=== PATIENT | female | born 1950 | race Caucasian/White ===

== ENCOUNTER → 2018-04-28 16:13 | Outpatient (CLI) | payer MEDICARE, SELFPAY ==
--- NOTE | 2018-04-28 16:23 | XR_ITS ---
XR finger LT min 2V CLINICAL INDICATION: Traumatic pain ITS.REASON: S/P FALL ORDERING PHYSICIAN: Henry Patel PATIENT AGE: 68 years Comparison: None FINDINGS: No fracture or dislocation IMPRESSION: Negative left thumb
--- NOTE | 2018-04-28 16:23 | XR_ITS ---
XR knee RT 3V HISTORY: Posttraumatic pain ITS.REASON: S/P FALL ORDERING PHYSICIAN: Henry Patel PATIENT AGE: 68 years COMPARISON: None FINDINGS: No fracture or dislocation. No lytic or blastic change. Normal mineralization. No significant arthritic changes evident. No other significant findings IMPRESSION: Negative Knee
== END ==
PROVIDERS: PCP Internal Medicine; Visit Provider Internal Medicine
DX: M79.645 Pain in left finger(s) (principal); M25.561 Pain in right knee; Z91.81 History of falling
CPT/HCPCS: 73140; 73562

== ENCOUNTER → 2018-05-24 14:50 | Outpatient (CLI) | payer MEDICARE, SELFPAY ==
[2018-05-24 15:18] LABS: Basophils # 0.1 K/mm3 (0-0.2); Eosinophils # 0.1 K/mm3 (0.0-0.4); Eosinophils % 2.3 % (0.1-12.0); Hematocrit 47.6 % (37.0-47.0); Hemoglobin 15.6 g/dL (12.2-16.2); Lymphocytes # 1.5 K/mm3 (0.7-4.5); Lymphocytes % 25.1 K/mm3 (10-50); Mean Corpuscular HGB Conc 32.9 g/dL (31.8-35.4); Mean Corpuscular Hemoglobin 29.7 pg (27.0-31.2); Mean Corpuscular Volume 90.3 fl (81-99); Mean Platelet Volume 7.4 fl (7.4-10.4); Monocytes # 0.4 K/mm3 (0.1-1.0); Monocytes % 6.8 % (1.7-9.3); Neutrophils # 3.8 K/mm3 (1.8-7.8); Neutrophils % 64.8 % (37.0-80.0); Platelet Count 203 K/mm3 (142-424); Red Blood Count 5.27 M/mm3 (4.20-5.40); Red Cell Distribution Width 12.8 % (11.5-17.5); White Blood Count 5.8 K/mm3 (4.8-10.8)
[2018-05-24 16:35] LABS: Alanine Aminotransferase 28 U/L (12-78); Albumin Level 3.8 gm/dL (3.4-5.0); Albumin/Globulin Ratio 1.1 (1.1-1.8); Alkaline Phosphatase 131 U/L (46-116); Anion Gap 11.7 mEq/L (5-15); Aspartate Amino Transferase 19 U/L (15-37); Bilirubin,Total 0.6 mg/dL (0.2-1.0); Blood Urea Nitrogen 20 mg/dL (7-18); Calcium 9.6 mg/dL (8.5-10.1); Carbon Dioxide 28 mmol/L (21.0-32.0); Chloride 107 mmol/L (98-107); Chol/HDL Ratio 4.3 (1-3.5); Cholesterol 218 mg/dL (140-200); Creatinine,Serum 0.86 mg/dL (0.55-1.02); Estimated Glomerular Filt Rate 65 ml/min (>60); GFR (African American) 79 ML/MIN (>60); Globulin 3.5 gm/dl (1.3-3.2); Glucose 85 mg/dL (74-106); HDL Cholesterol 51 mg/dL (29-89); LDL Cholesterol 142 mg/dL (0-130); Potassium 4.7 mmoL/L (3.5-5.1); Sodium 142 mmol/L (136-145); Thyroid Stimulating Hormone 2.85 uIU/ml (0.358-3.740); Total Protein,Serum 7.3 gm/dL (6.4-8.2); Triglycerides 123 mg/dL (30-200); VLDL Cholesterol 25 mg/dL (0-40)
== END ==
PROVIDERS: PCP Internal Medicine; Visit Provider Internal Medicine
DX: E78.3 Hyperchylomicronemia (principal); R07.9 Chest pain, unspecified; I10 Essential (primary) hypertension; K74.3 Primary biliary cirrhosis
CPT/HCPCS: 36415; 80053; 80061; 84443; 85025; 93005

== ENCOUNTER → 2019-01-05 15:33 | Outpatient (CLI) | payer MEDICARE, SELFPAY ==
--- NOTE | 2019-01-05 15:50 | MM_ITS ---
MM Dig screening mamm BI w/CAD CAD Screening COMPARISON: Digital mammograms with CAD 01/21/2017 and 12/10/2015 INDICATION: There is no personal or family history of breast cancer TECHNIQUE: Standard CC and MLO images were obtained. R2 CAD reviewed. FINDINGS: The breasts are composed primarily of fat with minimal fibroglandular densities in the subareolar regions bilaterally. Again noted is asymmetrically increased glandular densities in subareolar region of the left breast which is stable and unchanged from previous exams additional spot compression views of the left breast subareolar region were obtained and the glandular densities are stable and unchanged with no suspicious mass or architectural distortion identified. There are couple benign-appearing calcifications in each breast. There is no suspicious lesion and there are no suspicious microcalcifications. IMPRESSION: Stable exam no suspicious lesion seen BI-RADS Category: 2 Benign Finding(s) RECOMMENDED FOLLOW-UP: 1YR - 1 YEAR FOLLOW-UP (A letter has been sent to the patient regarding results of the study.)
== END ==
PROVIDERS: PCP Internal Medicine; Visit Provider Internal Medicine
DX: Z12.31 Encounter for screening mammogram for malignant neoplasm of breast (principal)
CPT/HCPCS: 77067

== ENCOUNTER → 2019-01-19 12:30 | Outpatient (CLI) | payer MEDICARE, SELFPAY ==
--- NOTE | 2019-01-19 13:10 | CI_ITS ---
Cerebrovascular Exam Indications: Carotidynia IMPRESSIONS 1. The bilateral vertebral arteries are patent with normal antegrade flow. 2. Less than 20% stenosis involving the right internal carotid artery and the left internal carotid artery. Carotid duplex study. Complete study and Doppler flow study including spectral analysis, color and mandujano scale imaging. Height: Height: 157.5cm. Height: 62in. Weight: Weight: 83.9kg. Weight: 184.6lb. Body mass index: BMI: 33.8kg/m^2. Body surface area: BSA: 1.95m^2. Location: Vascular laboratory. Patient status: Outpatient. Tables: Arterial flow: + +--------+--------+ Location V sys V ed + +--------+--------+ Right CCA - proximal 62.9cm/s 18.1cm/s + +--------+--------+ Right CCA - distal 72.3cm/s 19.6cm/s + +--------+--------+ Right ECA 61.3cm/s -------- + +--------+--------+ Right ICA - proximal 54.3cm/s 15.8cm/s + +--------+--------+ Right ICA - mid 73.9cm/s 25.9cm/s + +--------+--------+ Right ICA - distal 75cm/s 25.5cm/s + +--------+--------+ Right vertebral 38cm/s -------- + +--------+--------+ Left CCA - proximal 70.6cm/s 19.3cm/s + +--------+--------+ Left CCA - distal 70.6cm/s 16.5cm/s + +--------+--------+ Left ECA 65.6cm/s -------- + +--------+--------+ Left ICA - proximal 53.5cm/s 18.7cm/s + +--------+--------+ Left ICA - mid 84.8cm/s 26.6cm/s + +--------+--------+ Left ICA - distal 119cm/s 40cm/s + +--------+--------+ Left vertebral 44.1cm/s -------- + +--------+--------+ Velocity ratios: + + + + + + Right, V sys Right, V ed Left, V sys Left, V ed + + + + + + Max ICA/dist CCA 1.04 1.32 1.69 2.42 + + + + + + (Report amended ) Electronically signed by: Christiano Martinez [id number]
== END ==
PROVIDERS: PCP Internal Medicine; Visit Provider Internal Medicine
DX: R55 Syncope and collapse; I10 Essential (primary) hypertension; Z82.3 Family history of stroke
CPT/HCPCS: 93880

== ENCOUNTER → 2019-06-29 11:58 | Outpatient (CLI) | payer MEDICARE, SELFPAY ==
[2019-06-29 13:02] LABS: Basophils # 0.1 K/mm3 (0-0.2); Eosinophils # 0.1 K/mm3 (0.0-0.4); Eosinophils % 2.1 % (0.1-12.0); Hematocrit 48.4 % (37.0-47.0); Hemoglobin 15.1 g/dL (12.2-16.2); Lymphocytes # 1.6 K/mm3 (0.7-4.5); Lymphocytes % 26.1 % (10-50); Mean Corpuscular HGB Conc 31.2 g/dL (31.8-35.4); Mean Corpuscular Hemoglobin 29.2 pg (27.0-31.2); Mean Corpuscular Volume 93.5 fl (81-99); Mean Platelet Volume 8.4 fl (7.4-10.4); Monocytes # 0.5 K/mm3 (0.1-1.0); Monocytes % 7.7 % (1.7-9.3); Neutrophils # 3.8 K/mm3 (1.8-7.8); Neutrophils % 63.1 % (37.0-80.0); Platelet Count 238 K/mm3 (142-424); Red Blood Count 5.17 M/mm3 (4.20-5.40); Red Cell Distribution Width 13.7 % (11.5-17.5)
[2019-06-29 13:44] LABS: Alanine Aminotransferase 32 U/L (12-78); Albumin/Globulin Ratio 1.1 (1.1-1.8); Alkaline Phosphatase 129 U/L (46-116); Anion Gap 13.5 mEq/L (5-15); Aspartate Amino Transferase 27 U/L (15-37); Bilirubin,Total 0.7 mg/dL (0.2-1.0); Blood Urea Nitrogen 18 mg/dL (7-18); Calcium 9.8 mg/dL (8.5-10.1); Carbon Dioxide 28 mmol/L (21.0-32.0); Chloride 102 mmol/L (98-107); Chol/HDL Ratio 2.6 (1-3.5); Cholesterol 152 mg/dL (140-200); Creatinine,Serum 0.89 mg/dL (0.55-1.02); Estimated Glomerular Filt Rate 63 ml/min (>60); GFR (African American) 76 ML/MIN (>60); Globulin 3.7 gm/dl (1.3-3.2); Glucose 93 mg/dL (74-106); HDL Cholesterol 58 mg/dL (29-89); LDL Cholesterol 80 mg/dL (0-130); Potassium 4.5 mmoL/L (3.5-5.1); Sodium 139 mmol/L (136-145); Total Protein,Serum 7.7 gm/dL (6.4-8.2); Triglycerides 70 mg/dL (30-200); VLDL Cholesterol 14 mg/dL (0-40)
== END ==
PROVIDERS: Visit Provider Internal Medicine
DX: I10 Essential (primary) hypertension (principal); E78.5 Hyperlipidemia, unspecified
CPT/HCPCS: 36415; 80053; 80061; 85025

== ENCOUNTER → 2020-05-11 15:26 | Outpatient (CLI) | payer MEDICARE, SELFPAY ==
--- NOTE | 2020-05-11 15:30 | MM_ITS ---
PROCEDURE: MM DIG MAMM BI DX W/CAD Digital Breast Tomosynthesis Included CLINICAL INDICATION: There is no personal or family history of breast cancer. There has been a previous cyst aspiration left breast. COMPARISON: MG DMDBAV DIG MAMM-DX LICHA W ADD VIEWS from 12/10/2015 MG DMDBAV DIG MAMM-DX LICHA W/AVWS W/CAD from 01/21/2017 MG [facility] MM Dig screening mamm BI w/CAD from 01/05/2019 TECHNIQUE: Standard CC and MLO images and 3D Tomosynthesis was obtained. R2 CAD reviewed. Additional spot compression views of the left breast were obtained MLO and CC projection. FINDINGS: The breasts are composed primarily of fat with glandular elements in the subareolar regions bilaterally. Again noted is slightly asymmetric increased glandular elements deep to the nipple left breast. The additional spot compression views were obtained along with jono images and I feel that this area is stable and unchanged from previous exams. There are couple of benign-appearing calcifications in each breast. There is no suspicious lesion in either breast and no suspicious microcalcifications. IMPRESSION: Fibrofatty parenchyma with no suspicious lesions seen BI-RAD Category: 2 Benign Finding(s) FOLLOW-UP: 1YR 1 Year Follow-up (A letter has been sent to the patient regarding results of the study.) Dictated by: Dr. Nikhil Kirkpatrick MD 05/15/2020 10:24 Dr. Nikhil Kirkpatrick MD in [place] 05/15/2020 10:24
== END ==
PROVIDERS: PCP Internal Medicine; Visit Provider Internal Medicine
DX: N63.20 Unspecified lump in the left breast, unspecified quadrant; R92.8 Other abnormal and inconclusive findings on diagnostic imaging of breast
CPT/HCPCS: 77062; 77066; G0279

== ENCOUNTER → 2021-03-18 15:30 | Outpatient (CLI) | payer MEDICARE, SELFPAY ==
--- NOTE | 2021-03-18 15:39 | CT_ITS ---
PROCEDURE: CT HEAD/BRAIN WO CON CLINICAL INDICATION: FEQUENT FALLS, HEADACHES,DIZZINESS COMPARISON: No exams were available for comparison TECHNIQUE: Axial images obtained. All CT scans at the facility use one or more dose reduction, viz: automated exposure control, ma/kV adjustment per patient size (including targeted exams where dose is matched to indication, i.e. head), or iterative reconstruction technique. FINDINGS: No midline shift, mass effect, intracranial hemorrhage, hydrocephalus, or extra-axial fluid collection is evident. There is generalized atrophy with hypoattenuation of the periventricular white matter consistent with microangiopathic changes. The calvarium has an unremarkable appearance. No mastoid effusion. No sinus air-fluid level. IMPRESSION: No acute intracranial finding Dictated by: Christiano Martinez MD 03/18/2021 16:17 Christiano Martinez MD in [facility] 03/18/2021 16:17
== END ==
PROVIDERS: PCP Internal Medicine; Visit Provider Internal Medicine
DX: R51.9 Headache, unspecified (principal); R42 Dizziness and giddiness; R29.6 Repeated falls
CPT/HCPCS: 70450

== ENCOUNTER → 2021-04-08 20:20 | Outpatient (CLI) | payer MEDICARE, SELFPAY | PROVIDERS: Visit Provider Internal Medicine | DX: N39.0 Urinary tract infection, site not specified (principal) | CPT/HCPCS: 87086 ==

== ENCOUNTER → 2022-02-19 14:35 | Outpatient (CLI) | payer MEDICARE, SELFPAY ==
--- NOTE | 2022-02-19 | US_ITS ---
PROCEDURE INFORMATION: Exam: US Left Breast, Complete Exam date and time: 02/19/2022 4:07 PM Age: 72 years old Clinical indication: Left breast pain, patient had mammogram earlier in the day, please refer to that report. TECHNIQUE: Imaging protocol: Complete ultrasound of all four quadrants of the Left breast and the retroareolar regions, including ultrasound of the axilla when performed. COMPARISON: MG MM DIG MAMM BI DX W/CAD 02/19/2022 2:36 PM FINDINGS: Breast: Left sonography shows a benign-appearing retroareolar cyst measuring 0.4 x 0.3 x 0.4 cm. No solid mass demonstrated. Sonographically unremarkable left axillary lymph node. IMPRESSION: Minimal cystic change. Further evaluation of a painful abnormality should be based on clinical grounds regardless of radiographic findings or lack thereof. No sonographic evidence of malignancy. Annual mammographic screening is recommended unless otherwise clinically indicated. ASSESSMENT: BI-RADS Category 2: Benign
--- NOTE | 2022-02-19 14:39 | MM_ITS ---
PROCEDURE INFORMATION: Exam: MG Bilateral Diagnostic Breast Tomosynthesis Exam date and time: 02/19/2022 2:36 PM Age: 72 years old Clinical indication: Concern for left breast tenderness, unable to pinpoint concern according to technologist. History of breast cysts. No family history of breast cancer. TECHNIQUE: Imaging protocol: Bilateral Diagnostic tomosynthesis and 2D mammography including computer-aided detection (CAD) when performed. Unilateral or bilateral exam. COMPARISON: 1. MG MM DIG MAMM BI DX W/CAD 05/11/2020 3:40 PM 2. MG [facility] MM Dig screening mamm BI w/CAD 01/05/2019 4:14 PM 3. MG DMDBAV DIG MAMM-DX LICHA W/AVWS W/CAD 01/21/2017 11:08 AM 4. MG DMDBAV DIG MAMM-DX LICHA W ADD VIEWS 12/10/2015 11:05 AM FINDINGS: MAMMOGRAPHY: Breast composition: There are scattered areas of fibroglandular density. Mass: None. Architectural distortion: None. Calcifications: No suspicious calcifications. Asymmetric density: Stable or less prominent focal asymmetry in the left central breast going back to 12/10/2015. No developing asymmetry. Skin thickening: None. Axillary adenopathy: None. IMPRESSION: Patient to be recalled for left breast ultrasound for further evaluation of left breast pain. No mammographic evidence of malignancy. ASSESSMENT: BI-RADS Category 0: Incomplete- Need Additional Imaging Evaluation and/or Prior Mammograms for Comparison
== END ==
PROVIDERS: PCP Internal Medicine; Visit Provider Internal Medicine
DX: N64.4 Mastodynia (principal)
CPT/HCPCS: 76641; 77062; 77066; G0279

== ENCOUNTER → 2022-03-06 16:07 | Outpatient (CLI) | payer MEDICARE, SELFPAY ==
--- NOTE | 2022-03-06 16:09 | MR_ITS ---
PROCEDURE INFORMATION: Exam: MR Lumbar Spine Without Contrast Exam date and time: 03/06/2022 4:23 PM Age: 72 years old Clinical indication: Pain; Lumbago with sciatica; Left; Additional info: Lumbago w/ lt sided sciatica. Sitting for long period of time makes it worse. No injury/trauma TECHNIQUE: Imaging protocol: Magnetic resonance imaging of the lumbar spine without contrast. COMPARISON: No relevant prior studies available. FINDINGS: Bones/joints: Periarticular endplate degenerative changes at L1-2. Spinal cord: The conus extends inferiorly to the level of L1-2. L1-L2: 3-3.5 mm broad-based predominant left lateral disc bulge and osteophytic ridge . Moderate-moderately severe left neural foraminal stenosis in part secondary to hypertrophic facet changes. Mild right neural foraminal stenosis. L2-L3: No significant disc disease. No significant spinal canal stenosis. No neural foraminal stenosis. L3-L4: 3-3.5 mm left greater than right lateral disc bulge. Mild-moderate left lateral recess and neural foraminal stenosis. Mild right neural foraminal stenosis. Spinal canal intact. L4-L5: Less than 2 mm degenerative anterolisthesis at L4-5 secondary to advanced facet hypertrophy. Mild left greater than right neural foraminal stenosis secondary to accompanying 2 mm disc bulge. L5-S1: 2 mm anterolisthesis of L5 with respect S1. 3 mm broad-based and lateral disc bulge in association with the anterolisthesis at L5-S1. There is moderate right, mild left neural foraminal stenosis. Soft tissues: Unremarkable. Kidneys and ureters: Incomplete visualization of approximate 8 mm right renal cyst.. Other findings: Diffuse changes of disc degeneration. IMPRESSION: 1. At L1-2: 3-3.5 mm broad-based predominant left lateral disc bulge and osteophytic ridge. Moderate-moderately severe left, mild right neural foraminal stenosis. 2. At L3-4: 3-3.5 mm left greater than right lateral disc bulge. Mild-moderate left lateral recess and neural foraminal stenosis. Mild right neural foraminal stenosis. 3. At L5-S1: 2 mm degenerative anterolisthesis of L5 with respect S1. Accompanying 3 mm broad based on lateral disc bulge. Moderate right, mild left neural foraminal stenosis. 4. At L4-5: Less than 2 mm degenerative anterolisthesis. Mild left greater than right neural foraminal stenosis. Accompanying 2 mm disc bulge.
== END ==
PROVIDERS: PCP Internal Medicine; Visit Provider Internal Medicine
DX: M54.42 Lumbago with sciatica, left side (principal)
CPT/HCPCS: 72148; 76376

== ENCOUNTER → 2022-04-28 16:26 | Outpatient (CLI) | payer MEDICARE, SELFPAY ==
--- NOTE | 2022-04-28 16:39 | ECG_ITS ---
APPROVED REPORT Exam: Resting ECG HR:64 bpm ECG Measurements Heart Rate 64 AXES [place] 168 P 1 QRSd 104 QRS 84 QT 377 T 20 QTc 386 Conclusion SINUS RHYTHM LOW QRS VOLTAGE IN PRECORDIAL LEADS INCOMPLETE RBBB POOR R WAVE PROGRESSION UNCONFIRMED REPORT Electronically signed by : Henry Patel MD 04/30/2022 13:57:23
== END ==
PROVIDERS: PCP Internal Medicine; Visit Provider Internal Medicine
DX: R07.9 Chest pain, unspecified (principal); I10 Essential (primary) hypertension
CPT/HCPCS: 93005

== ENCOUNTER → 2022-07-21 11:30 | Outpatient (CLI) | payer MEDICARE, SELFPAY ==
--- NOTE | 2022-07-21 11:35 | CA_ITS ---
FINAL REPORT TECHNIQUE: Ultrasound images of the deep venous system were obtained from the left groin to the calf veins. CLINICAL HISTORY: PAIN LT KNEE,EDEMA,BRUISING LT KNEE,NKI FINDINGS: The deep venous system is normally compressible. Normal flow is identified. There is a 5.6 cm popliteal cyst noted. IMPRESSION: No evidence of left lower extremity DVT. Reviewed, Interpreted and Dictated by Marin Jacome MD Transcribed by Vandana Lopez Authenticated and [facility]
--- NOTE | 2022-07-21 11:56 | XR_ITS ---
FINAL REPORT CLINICAL HISTORY: FALL ON L KNEE 07/19/22 FINDINGS: 3 views of the left knee were obtained. There is no acute fracture or dislocation. The joint spaces are intact. There is no soft tissue abnormality. IMPRESSION: No acute process. Reviewed, Interpreted and Dictated by Marin Jacome MD Transcribed by Rey Webb Authenticated and . [facility]
== END ==
PROVIDERS: PCP Internal Medicine; Visit Provider Internal Medicine
DX: M25.562 Pain in left knee (principal); M79.662 Pain in left lower leg; R60.1 Generalized edema; W19.XXXD Unspecified fall, subsequent encounter
CPT/HCPCS: 73562; 93971

== ENCOUNTER → 2022-10-03 16:33 | Outpatient (CLI) | payer MEDICARE, SELFPAY ==
--- NOTE | 2022-10-03 17:04 | ECG_ITS ---
APPROVED REPORT Exam: Resting ECG HR:70 bpm ECG Measurements Heart Rate 70 AXES MO 165 P 41 QRSd 98 QRS -33 QT 368 T 40 QTc 389 Conclusion SINUS RHYTHM POSSIBLE LEFT ATRIAL ENLARGEMENT [-0.1mV P-WAVE IN V1/V2] LEFT AXIS DEVIATION [QRS AXIS < -30] INCOMPLETE RIGHT BUNDLE BRANCH BLOCK NO SIGNIFICANT CHANGES COMPARED TO EKG IN 2006 Electronically signed by : Henry Patel MD 10/06/2022 13:46:18
[2022-10-03 18:45] LABS: Basophils # 0.1 K/mm3 (0-0.2); Basophils % 0.8 % (0.1-2.0); Eosinophils # 0.1 K/mm3 (0.0-0.4); Eosinophils % 1.2 % (0.1-12.0); Hematocrit 46.1 % (37.0-47.0); Hemoglobin 15.7 g/dL (12.2-16.2); Lymphocytes # 1.4 K/mm3 (0.7-4.5); Lymphocytes % 19.4 % (10-50); Mean Corpuscular Hemoglobin 30.8 pg (27.0-31.2); Mean Corpuscular Volume 90.6 fl (81-99); Monocytes # 0.5 K/mm3 (0.1-1.0); Monocytes % 6.8 % (1.7-9.3); Neutrophils # 5.3 K/mm3 (1.8-7.8); Neutrophils % 71.9 % (37.0-80.0); Platelet Count 236 K/mm3 (142-424); Red Blood Count 5.09 M/mm3 (4.20-5.40); Red Cell Distribution Width 13.6 % (11.5-17.5); White Blood Count 7.4 K/mm3 (4.8-10.8)
[2022-10-03 19:06] LABS: Alanine Aminotransferase 28 U/L (12-78); Albumin Level 4.4 g/dl (3.5-5.0); Albumin/Globulin Ratio 1.5 (1.1-1.8); Alkaline Phosphatase 139 U/L (38-126); Anion Gap 13.1 mEq/L (5-15); Aspartate Amino Transferase 35 U/L (14-36); Bilirubin,Total 0.5 mg/dl (0.2-1.3); Blood Urea Nitrogen 21 mg/dl (7-17); Calcium 9.3 mg/dl (8.4-10.2); Carbon Dioxide 28 mmol/L (22.0-30.0); Chloride 103 mmol/L (98-107); Estimated Glomerular Filt Rate 61 ml/min (>60); GFR (African American) 74 ML/MIN (>60); Glucose 96 mg/dl (74-100); Potassium 4.1 mmoL/L (3.5-5.1); Sodium 140 mmol/L (136-145); Total Protein,Serum 7.4 g/dl (6.3-8.2)
== END ==
PROVIDERS: PCP Internal Medicine; Visit Provider Internal Medicine
DX: Z01.818 Encounter for other preprocedural examination (principal)
CPT/HCPCS: 80053; 85025; 93005

== ENCOUNTER → 2022-11-24 14:45 | Outpatient (CLI) | payer MEDICARE, SELFPAY ==
[2022-11-24 17:28] LABS: Basophils # 0.1 K/mm3 (0-0.2); Basophils % 1.1 % (0.1-2.0); Eosinophils # 0.2 K/mm3 (0.0-0.4); Eosinophils % 2.6 % (0.1-12.0); Hematocrit 47.2 % (37.0-47.0); Hemoglobin 14.9 g/dL (12.2-16.2); Lymphocytes # 1.4 K/mm3 (0.7-4.5); Lymphocytes % 20.8 % (10-50); Mean Corpuscular HGB Conc 31.6 g/dL (31.8-35.4); Mean Corpuscular Hemoglobin 29.2 pg (27.0-31.2); Mean Corpuscular Volume 92.6 fl (81-99); Monocytes # 0.4 K/mm3 (0.1-1.0); Monocytes % 6.5 % (1.7-9.3); Neutrophils # 4.7 K/mm3 (1.8-7.8); Platelet Count 271 K/mm3 (142-424); Red Cell Distribution Width 13.5 % (11.5-17.5); White Blood Count 6.8 K/mm3 (4.8-10.8)
[2022-11-24 17:34] LABS: Alanine Aminotransferase 32 U/L (12-78); Albumin Level 4.6 g/dl (3.5-5.0); Albumin/Globulin Ratio 1.5 (1.1-1.8); Alkaline Phosphatase 174 U/L (38-126); Anion Gap 13.7 mEq/L (5-15); Aspartate Amino Transferase 48 U/L (14-36); Bilirubin,Total 0.7 mg/dl (0.2-1.3); Blood Urea Nitrogen 23 mg/dl (7-17); Calcium 10.2 mg/dl (8.4-10.2); Carbon Dioxide 29 mmol/L (22.0-30.0); Chloride 99 mmol/L (98-107); Chol/HDL Ratio 3.7 (1-3.5); Cholesterol 190 mg/dl (140-200); Estimated Glomerular Filt Rate 61 ml/min (>60); GFR (African American) 74 ML/MIN (>60); Glucose 82 mg/dl (74-100); HDL Cholesterol 52 mg/dl (40-60); Potassium 4.7 mmoL/L (3.5-5.1); Sodium 137 mmol/L (136-145); Total Protein,Serum 7.6 g/dl (6.3-8.2); Triglycerides 110 mg/dl (30-150); VLDL Cholesterol 22 mg/dL (0-40)
[2022-11-24 17:45] LABS: Direct LDL Cholesterol 108.66 mg/dL (100-129)
== END ==
PROVIDERS: PCP Internal Medicine; Visit Provider Internal Medicine
DX: I10 Essential (primary) hypertension (principal); E78.5 Hyperlipidemia, unspecified; K74.3 Primary biliary cirrhosis; K21.9 Gastro-esophageal reflux disease without esophagitis; M81.0 Age-related osteoporosis without current pathological fracture
CPT/HCPCS: 80053; 80061; 85025

== ENCOUNTER → 2023-04-28 11:56 | Outpatient (CLI) | payer MEDICARE, SELFPAY ==
[2023-04-28 14:01] LABS: Chloride 102 mmol/L (98-107); Potassium 4.6 mmoL/L (3.5-5.1); Sodium 142 mmol/L (136-145)
[2023-04-28 14:04] LABS: Alanine Aminotransferase 24 U/L (12-78); Albumin Level 4.1 g/dl (3.5-5.0); Albumin/Globulin Ratio 1.3 (1.1-1.8); Alkaline Phosphatase 170 U/L (38-126); Anion Gap 14.6 mEq/L (5-15); Aspartate Amino Transferase 33 U/L (14-36); Bilirubin,Total 0.5 mg/dl (0.2-1.3); Blood Urea Nitrogen 22 mg/dl (7-17); Carbon Dioxide 30 mmol/L (22.0-30.0); Cholesterol 145 mg/dl (140-200); Estimated Glomerular Filt Rate 61 ml/min (>60); GFR (African American) 74 ML/MIN (>60); Globulin 3.2 g/dL (1.3-3.2); Glucose 87 mg/dl (74-100); Total Protein,Serum 7.3 g/dl (6.3-8.2); Triglycerides 114 mg/dl (30-150); VLDL Cholesterol 23 mg/dL (0-40)
[2023-04-28 15:26] LABS: Basophils % 0.5 % (0.1-2.0); Eosinophils # 0.1 K/mm3 (0.0-0.4); Eosinophils % 1.8 % (0.1-12.0); Hematocrit 47.6 % (37.0-47.0); Hemoglobin 15.2 g/dL (12.2-16.2); Lymphocytes # 1.4 K/mm3 (0.7-4.5); Lymphocytes % 20.1 % (10-50); Mean Corpuscular HGB Conc 31.9 g/dL (31.8-35.4); Mean Corpuscular Hemoglobin 28.7 pg (27.0-31.2); Mean Corpuscular Volume 90.2 fl (81-99); Mean Platelet Volume 9.6 fl (7.4-10.4); Monocytes # 0.4 K/mm3 (0.1-1.0); Neutrophils % 71.5 % (37.0-80.0); Platelet Count 217 K/mm3 (142-424); Red Blood Count 5.27 M/mm3 (4.20-5.40); Red Cell Distribution Width 13.6 % (11.5-17.5); White Blood Count 7.1 K/mm3 (4.8-10.8)
[2023-04-28 15:31] LABS: Direct LDL Cholesterol 73.91 mg/dL (100-129)
[2023-04-28 16:29] LABS: Chol/HDL Ratio 3.5 (1-3.5); HDL Cholesterol 41 mg/dl (40-60)
== END ==
PROVIDERS: PCP Internal Medicine; Visit Provider Internal Medicine
DX: K74.3 Primary biliary cirrhosis (principal); I10 Essential (primary) hypertension; E78.5 Hyperlipidemia, unspecified
CPT/HCPCS: 36415; 80053; 80061; 85025

== ENCOUNTER → 2023-07-13 14:35 | Outpatient (CLI) | payer MEDICARE, SELFPAY ==
--- NOTE | 2023-07-13 14:43 | MM_ITS ---
PROCEDURE INFORMATION: Exam: MG Bilateral Screening 3D Mammography Exam date and time: 07/13/2023 2:33 PM Age: 73 years old Clinical indication: Screening examination TECHNIQUE: Imaging protocol: Bilateral Screening tomosynthesis and 2D mammography including computer-aided detection (CAD) when performed. COMPARISON: 1. MG MM DIG MAMM BI DX W/CAD 02/19/2022 2:36 PM 2. MG MM DIG MAMM BI DX W/CAD 05/11/2020 3:40 PM FINDINGS: MAMMOGRAPHY: Breast composition: The breasts are heterogeneously dense, which may obscure small masses. Mass: None. Architectural distortion: None. Calcifications: No suspicious calcifications. Asymmetric density: None. Skin thickening: None. Axillary adenopathy: None. IMPRESSION: No mammographic evidence of malignancy. Annual screening is recommended unless otherwise clinically indicated. ASSESSMENT: BI-RADS Category 1: Negative
== END ==
PROVIDERS: PCP Internal Medicine; Visit Provider Internal Medicine
DX: R92.8 Other abnormal and inconclusive findings on diagnostic imaging of breast (principal); Z12.31 Encounter for screening mammogram for malignant neoplasm of breast
CPT/HCPCS: 77063; 77067

== ENCOUNTER 2024-04-21 12:44 | Outpatient (CLI) | payer MEDICARE, SELFPAY ==
--- NOTE | 2024-04-21 12:44 | CA_ITS ---
FINAL REPORT TECHNIQUE: Color Doppler, duplex Doppler and mandujano scale sonography of the bilateral neck arterial vasculature was performed. Velocities were measured in the carotid arteries. Stenosis evaluation based on the validated velocity criteria. CLINICAL HISTORY: Patient stopped statin therapy, HTN, family history of HD, JOSHUA FINDINGS: The peak systolic velocity of the right common carotid artery is 85 cm/s. The peak systolic velocity of the right internal carotid artery is 75 cm/s and end diastolic velocity 28 cm/s. The ICA/CCA ratio is 1.2. A small amount of plaque is present. The right external carotid artery is patent. The right vertebral artery is patent with antegrade flow. The peak systolic velocity of the left common carotid artery is 80 cm/s. The peak systolic velocity of the left internal carotid artery is 112 cm/s and end diastolic velocity 32 cm/s. The ICA/CCA ratio is 1.7. A small amount of plaque is present. The left external carotid artery is patent.The left vertebral artery is patent with antegrade flow. IMPRESSION: Less than 50% bilateral carotid stenoses. Bilateral patent vertebral arteries with antegrade flow. If indicated, CTA or MRA could further evaluate. Reviewed, Interpreted and Dictated by Bay Menjivar III, MD Transcribed by Desiree Jay Authenticated and [facility]
[2024-04-21 13:40] LABS: Chloride 106 mmol/L (98-107); Sodium 139 mmol/L (136-145)
[2024-04-21 13:41] LABS: Potassium 4.3 mmoL/L (3.5-5.1)
[2024-04-21 13:43] LABS: Alanine Aminotransferase 23 U/L (12-78); Albumin/Globulin Ratio 1.4 (1.1-1.8); Alkaline Phosphatase 123 U/L (38-126); Anion Gap 6.3 mEq/L (5-15); Aspartate Amino Transferase 31 U/L (14-36); Bilirubin,Total 0.7 mg/dl (0.2-1.3); Blood Urea Nitrogen 20 mg/dl (7-17); Carbon Dioxide 31 mmol/L (22.0-30.0); Estimated Glomerular Filt Rate 61 ml/min (>60); GFR (African American) 74 ML/MIN (>60); Globulin 2.8 g/dL (1.3-3.2); Total Protein,Serum 6.8 g/dl (6.3-8.2)
[2024-04-21 13:44] LABS: Calcium 9.6 mg/dl (8.4-10.2); Chol/HDL Ratio 4.8 (1-3.5); Cholesterol 211 mg/dl (140-200); Glucose 90 mg/dl (74-100); HDL Cholesterol 44 mg/dl (40-60); Triglycerides 144 mg/dl (30-150); VLDL Cholesterol 29 mg/dL (0-40)
[2024-04-21 13:55] LABS: Direct LDL Cholesterol 125.28 mg/dL (100-129)
== END 2024-04-21 23:59 | disposition home or self-care (01) ==
LOC: RT 12:44
PROVIDERS: PCP Internal Medicine; Visit Provider Internal Medicine
DX: I65.23 Occlusion and stenosis of bilateral carotid arteries (principal); K74.3 Primary biliary cirrhosis; I10 Essential (primary) hypertension; E78.5 Hyperlipidemia, unspecified
CPT/HCPCS: 36415; 80053; 80061; 93880

== ENCOUNTER 2024-08-18 15:35 | Outpatient (CLI) | payer MEDICARE, SELFPAY ==
[2024-08-18 17:22] LABS: Basophils # 0.1 K/mm3 (0-0.2); Basophils % 0.9 % (0.1-2.0); Eosinophils # 0.1 K/mm3 (0.0-0.4); Eosinophils % 1.7 % (0.1-12.0); Hematocrit 47.3 % (37.0-47.0); Hemoglobin 15.7 g/dL (12.2-16.2); Lymphocytes # 1.4 K/mm3 (0.7-4.5); Lymphocytes % 21.9 % (10-50); Mean Corpuscular HGB Conc 33.3 g/dL (31.8-35.4); Mean Corpuscular Hemoglobin 30.3 pg (27.0-31.2); Mean Platelet Volume 8.7 fl (7.4-10.4); Monocytes # 0.4 K/mm3 (0.1-1.0); Monocytes % 6.9 % (1.7-9.3); Neutrophils # 4.2 K/mm3 (1.8-7.8); Neutrophils % 68.6 % (37.0-80.0); Platelet Count 190 K/mm3 (142-424); Red Cell Distribution Width 13.7 % (11.5-17.5); White Blood Count 6.2 K/mm3 (4.8-10.8)
[2024-08-18 18:18] LABS: Albumin Level 4.6 g/dl (3.5-5.0); Chloride 103 mmol/L (98-107)
[2024-08-18 18:19] LABS: Potassium 4.7 mmoL/L (3.5-5.1); Sodium 140 mmol/L (136-145)
[2024-08-18 18:21] LABS: Alanine Aminotransferase 33 U/L (12-78); Anion Gap 9.7 mEq/L (5-15); Aspartate Amino Transferase 47 U/L (14-36); Blood Urea Nitrogen 25 mg/dl (7-17); Carbon Dioxide 32 mmol/L (22.0-30.0); Estimated Glomerular Filt Rate 54 ml/min (>60); GFR (African American) 65 ML/MIN (>60)
[2024-08-18 18:22] LABS: Albumin/Globulin Ratio 1.5 (1.1-1.8); Alkaline Phosphatase 131 U/L (38-126); Bilirubin,Total 0.7 mg/dl (0.2-1.3); Calcium 10.6 mg/dl (8.4-10.2); Glucose 77 mg/dl (74-100); Total Protein,Serum 7.6 g/dl (6.3-8.2)
[2024-08-18 18:52] LABS: Thyroid Stimulating Hormone 3.24 uIU/mL (0.465-4.68)
== END 2024-08-18 23:59 | disposition home or self-care (01) ==
LOC: LAB.DROPOF 08-19 08:29
PROVIDERS: PCP Internal Medicine; Visit Provider Internal Medicine
DX: K74.3 Primary biliary cirrhosis (principal); I10 Essential (primary) hypertension; R53.83 Other fatigue
CPT/HCPCS: 80053; 84443; 85025

== ENCOUNTER 2025-04-07 15:04 | Outpatient (CLI) | payer MEDICARE, SELFPAY ==
--- NOTE | 2025-04-07 15:00 | MM_ITS ---
PROCEDURE INFORMATION: Exam: MG Bilateral Screening 3D Mammography Exam date and time: 04/07/2025 3:08 PM Age: 75 years old Clinical indication: Screening exam. TECHNIQUE: Imaging protocol: Bilateral Screening tomosynthesis and 2D mammography including computer-aided detection (CAD) when performed. COMPARISON: 1. MG MM DIG SCREENING MAMM BI W/CAD 07/13/2023 2:33 PM 2. MG MM DIG MAMM BI DX W/CAD 02/19/2022 2:36 PM FINDINGS: MAMMOGRAPHY: Breast composition: The breasts are heterogeneously dense, which may obscure small masses. Mass: No suspicious masses. Architectural distortion: None. Calcifications: No suspicious calcifications. Asymmetric density: None. Skin thickening: None. Axillary adenopathy: None. IMPRESSION: No mammographic evidence of malignancy. Annual screening is recommended unless otherwise clinically indicated. ASSESSMENT: BI-RADS Category 1: Negative.
--- OUTSIDE RECORDS SUMMARY | 2025-04-07 15:10 | XMS_ITS | Clinical Summary ---
Author Organization [facility] Address [address] [place] [address] Care Team Providers Care Replacer Name Role Phone Henry Patel MD Primary Care Provider [phone] Allergies Active Allergy Reactions Criticality Noted Date Comments Omeprazole Rash Low 05/21/2022 Medications atorvastatin (LIPITOR) 20 MG tablet Take 1 tablet by mouth every night at bedtime. 2 Active spironolactone (ALDACTONE) 100 MG tablet Take 1 tablet by mouth Daily. for blood pressure. 2 Active ursodiol (ACTIGALL) 500 MG tablet Take 1 tablet by mouth 2 (Two) Times a Day. as directed 2 Active polyethylene glycol (MIRALAX) 17 g packet Take 17 g by mouth 2 (Two) Times a Day. Active Lysine 1000 MG tablet Take 1 tablet by mouth 2 (Two) Times a Day. Active Multiple Vitamins-Minera ls (PRESERVISION AREDS 2 PO) Take by mouth Daily. Active Ocaliva 5 MG tablet Take 1 tablet by mouth Daily. For liver 3 Active clobetasol (TEMOVATE) 0.05 % cream Apply 1 application topically to the appropriate area as directed As Needed. 3 Active Calcium Carbonate 1250 MG/5ML Take 5 mL by mouth 2 (Two) Times a Day. Active Active Problems Problem Noted Date Diagnosed Date Essential hypertension 06/24/2023 Chest pain, atypical 05/21/2022 Other hyperlipidemia 05/21/2022 Resolved Problems Problem Noted Date Diagnosed Date Resolved Date Exercise-induced tachycardia 05/21/2022 06/24/2023 Abnormal EKG 05/21/2022 06/24/2023 Family History Medical History Relation Name Comments Squamous cell carcinoma Brother Heart attack Father Prostate cancer Father Alzheimer's disease Mother Developmental Disability Sister Speech disorder Sister Relation Name Status Comments Brother Father Mother Sister Social History Tobacco Use Types Packs/Day Years Used Date Smoking Tobacco: Never Smokeless Tobacco: Never Alcohol Use Standard Drinks/Week Comments Never 0 (1 standard drink = 0.6 oz pur e alcohol) Abuse Screen Answer Date Recorded Unsafe at Home or Work/School Not on file Feels Threatened by Someone? Not on file 05/2023 Does Anyone Keep You from Co ntacting Others or Doint Things Outside the Home? Not on file 06/22/2023 Physical Sign of Abuse Present Not on file 1 Housing Stability Answer Date Recorded Current Living Arrangements Not on file 05/2023 Potentially Unsafe Housing Conditions Not on meliza e 06/22/2023 Family and Community Support Answer Fco e Recorded Help with Day-to-Day Activities Not on file 06/22/2023 Lonely or Isolated Not on file 06/22/2023 Employment Answer Date Recorded Do you want help finding or keeping work or a angel b? Not on file 06/22/2023 Disabilities Answer Date Recorded Concentrating, Remembering, or Making Decisions Difficulty Not on file 06/22/2023 Doing Errands Independently Difficulty Not on fi le 06/22/2023 Education Answer Date Recorded Help with school or training? Not on file Preferred Language Not on file 06/22/2023 Comments Unknown Sex and Gender Information Value Date Recorded Sex Assigned at Not on file Legal Sex Female 12:39 PM EDT Gender Identity Not on file Sexual Orientation Not on file Last Filed Vital Signs Vital Sign Reading Time Taken Comments Blood Pressure 126/98 06/24/2023 12:58 PM EDT Pulse 70 06/24/2023 12:58 PM EDT Temperature - - Respiratory Rate - - Oxygen Saturation 96% 06/24/2023 12:58 PM EDT Inhaled Oxygen Concentration - - Weight 79.5 kg (175 lb 3.2 oz) 06/24/2023 12:58 PM EDT Height 157.5 cm (5' 2 ) 06/24/2023 12:58 PM EDT Body Mass Index 32.04 06/24/2023 12:58 PM EDT Plan of Treatment Health Maintenance Due Date Last Done Comments DXA SCAN 1950 LIPID PANEL 1950 TDAP/TD VACCINES (1 - Tdap) 02/10/1967 Pneumococcal Vaccine 50+ (1 of 1 - PCV) 02/10/1998 ZOSTER VACCINE (1 of 2) 02/10/1998 ANNUAL WELLNESS VISIT 05/20/2022 HEPATITIS C SCREENING 05/20/2022 RSV Vaccine - Adults (1 - 1- dose 75+ series) 02/10/2023 COVID-19 Vaccine ( - season) 2024 07/18/2021, 10/19/2020, 09/19/2020 INFLUENZA VACCINE 06/14/2025 Insurance [facility] MEDICARE REPLACE Advance Directives Documents on File Type Date Recorded Patient Accounting Consultant Expl anation LIVING WILL - SCAN 05/20/2022 1:15 PM RJ [place], 05/16/2009 POWER OF COMPETITIVE ATHLETE - SCAN 05/20/2022 1:15 PM RJ [place], 5 Care Teams Replacer Relationship Specialty Start Date End Date Henry Patel MD [address] [facility] [address] [address] PCP - General Internal Medicine 05/16/22
--- OUTSIDE RECORDS SUMMARY | 2025-04-07 15:10 | XMS_ITS | Clinical Summary ---
Author Organization [facility] Address [address] [place] [address] Phone Care Team Providers Care Telecommunication Equipment Repairer Name Role Phone Henry Patel MD Primary Care Provider [phone] Allergies No known active allergies Medications atorvastatin (LIPITOR) 20 mg Oral Tablet Take 20 mg by mouth daily. 2 Active Lysine 1,000 mg Oral Tablet Take 1,000 mg by mouth. 2 tablets in am and one tablet in pm Active polyethylene glycol (GLYCOLAX) 17 gram/dose Oral Powder Take 17 g by mouth. Active spironolactone (ALDACTONE) 100 mg Oral Tablet TAKE 1 TABLET BY MOUTH EVERY DAY FOR BLOOD PRESSURE 2 Active Ursodiol (ACTIGALL) 500 mg Oral Tablet TAKE 1 TABLET BY MOUTH TWICE DAILY DIRECTED 2 Active phenazopyridine (PYRIDIUM) 200 mg Oral TabletIndicatio ns:Urethral irritation Take 1 Tablet by mouth 3 times daily as needed. 30 Tablet 2 Active Additional Information Patient not taking.Reason: Pt electing to not take the medication, Reported on 10/13/2022 vit C,J-Cf-wcslz-alee tein-zeaxan (PRESERVISION AREDS-2) 250-90-40-1 mg Oral Capsule Take 1 Capsule by mouth. Active calcium carbonate 1,250 mg/5 mL Oral Suspension Take 1,250 mg by mouth 2 times daily (with meals). Active docusate sodium (COLACE) 100 mg Oral Capsule Take 1 Capsule by mouth 2 times daily. 60 Capsule 2 10/14/2022 8:49 AM EST 3 Active Additional Information Patient not taking.Reason: Pt electing to not take the medication, Reported on 06/03/2023 ibuprofen (ADVIL;MOTRIN) 600 mg Oral Tablet Take 1 Tablet by mouth every 6 hours as needed for Pain. 60 Tablet 1 10/14/2022 8:49 AM EST 3 Active Additional Information Patient not taking.Reason: Pt electing to not take the medication, Reported on 06/03/2023 ondansetron (ZOFRAN-ODT) 4 mg Oral Tablet, Rapid Dissolve Take 1 Tablet by mouth every 6 hours as needed for Nausea. 30 Tablet 10/14/2022 8:49 AM EST 3 Active Additional Information Patient not taking.Reason: Pt electing to not take the medication, Reported on 06/03/2023 traMADoL (ULTRAM) 50 mg Oral Tablet Take 1 Tablet by mouth every 6 hours as needed for Pain. 20 Tablet 10/14/2022 8:49 AM EST 3 Active Additional Information Patient not taking.Reason: Pt electing to not take the medication, Reported on 06/03/2023 senna (SENOKOT) 8.6 mg Oral Tablet Take 1 Tablet by mouth daily as needed for Constipation. 30 Tablet 1 10/14/2022 8:49 AM EST 3 Active Additional Information Patient not taking.Reason: Pt electing to not take the medication, Reported on 06/03/2023 obeticholic acid (OCALIVA ORAL) Take 5 mg by mouth daily. 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 Incomplete bladder emptying 08/06/2022 Surgical History Surgery Date Site/Laterality Comments CARDIAC CATHETERIZATION 05/15/2022 - 06/13/2022 CHOLECYSTECTOMY 09/14/1996 - 09/13/1997 HYSTERECTOMY TUBAL LIGATION 09/14/1984 - 09/13/1985 DENTAL SURGERY COLPOPEXY 10/13/2022 N/A Robotic Assisted Laparoscopic Sacral Colpopexy, Lysis of Bowel adhesions >30 minutes, Incidental cystotomy with primary repair, Perineorrhaphy, Placement of Transobturator Midurethral Sling, Cystoscopy; Surgeon: Dagmar Ramos MD; Location: [facility]; Service: Urogynecology Medical devices from this surgery are in the Medical Devices section. CYSTOSCOPY 10/13/2022 N/A Surgeon: Dagmar Ramos MD; Location: [facility]; Service: Urogynecology Medical devices from this surgery are in the Medical Devices section. Medical History Medical History Date Comments Liver fibrosis stage F2 Primary biliary cirrhosis (HCC) 07/26/2001 Gingival and periodontal disease 1988 Esophageal spasm Hyperlipidemia Heartburn Family History Medical History Relation Name Comments Anesth Problems Neg Hx Social History Tobacco Use Types Packs/Day Years Used Date Smoking Tobacco: Never Smokeless Tobacco: Never Tobacco Cessation:Counseling Given: Not Answered Alcohol Use Standard Drinks/Week Comments Never 0 (1 standard drink = 0.6 oz pur e alcohol) Overall Financial Resource Strain (CARDIA) Answe r Date Recorded How hard is it for you to pa y for the very basics like food, housing, medical care, and heating? Not hard at all 10/14/2022 PHQ-2 Answer Date Recorded PHQ-2 Total Score 0 10/14/2022 Exercise Vital Sign Answer Date Recorde d On average, how many days pe r week do you engage in moderate to strenuous exercise (like a brisk walk)? 0 days 10/14/2022 On average, how many minutes do you engage in exercise at this level? 0 min 10/14/2022 Hunger Vital Sign Answer Date Recorded Within the past 12 months, y ou worried that your food would run out before you got the money to buy more. Never true 10/14/19 23 Within the past 12 months, t he food you bought just didn't last and you didn't have money to get more. Never true 10/14/2022 PRAPARE - Transportation Answer Date Re corded In the past 12 months, has l ack of transportation kept you from medical appointments or from getting medications? No 09/16 In the past 12 months, has l ack of transportation kept you from meetings, work, or from getting things needed for daily living? No 10/14/2022 Sexually Active Control Partners Comments Not Currently Comments No Sex and Gender Information Value Date Recorded Sex Assigned at Not on file Legal Sex Female 10:46 AM EDT Gender Identity Not on file Sexual Orientation Not on file Obstetrics History Last Filed Vital Signs Vital Sign Reading Time Taken Comments Blood Pressure 120/57 10/14/2022 10:41 AM EST Pulse 73 02/29/2024 2:31 PM EDT Temperature 36.7 C (98 F) 10/14/2022 10:41 AM EST Respiratory Rate 16 02/29/2024 2:31 PM EDT Oxygen Saturation 98% 11/24/2023 1:30 PM EDT Inhaled Oxygen Concentration - - Weight 79.4 kg (175 lb) 02/29/2024 2:31 PM EDT Height 154.9 cm (5' 1 ) 06/03/2023 1:05 PM EDT Body Mass Index 33.07 06/03/2023 1:05 PM EDT Plan of Treatment Health Maintenance Due Date Last Done Comments Wellness Exam Medicare 02/10/1953 Hepatitis C Screening 02/10/1966 DTaP/TDaP/Td (1 - Tdap) 02/10/1967 Pneumococcal Vaccine 50+ (1 of 1 - PCV) 02/10/1998 Zoster (1 of 2) 02/10/1998 Bone Density Screening 02/10/2013 RSV or 60+ (1 - 1-dose 75+ series) 02/10/2023 COVID-19 Vaccine (4 - 2023-2 5 season) 2024 07/18/2021, 10/19/2020, 09/19/2020 Influenza Vaccine (#1) 2025 Hepatitis B Vaccine Aged Out No longe r eligible based on patient's age to complete this topic Meningococcal B Vaccine Aged Out No l onger eligible based on patient's age to complete this topic Medical Devices Implanted Type Area Enterprise Software Developer Device Identifier Shelf Expiration Date Model / Serial / Lot Mesh Y-Shp Upsylon Surg - [id number] Implanted:Qty: 1 on 10/13/2022 by Dagmar Ramos MD at [facility] N/A: Vagina [employer]:MICROV[employer]IVE: UROLOGY 04/13/2024 [id number] / / [id number] Desara Sl Short Length Mesh Sling 12cm - [id number] Implanted:Qty: 1 on 10/13/2022 by Dagmar Ramos MD at [facility] N/A: Bladder [employer] 04/07/2027 LEONIDES-DS0 1SL / / [id number] Insurance MEDICARE PPO MR [employer] MEDICARE PPO MR Advance Directives For more information, please contact: [phone] Documents on File Type Date Recorded Patient Compensation And Benefits Advisor Expl anation Power of Psychology Department Chair 10/13/2022 5:44 AM ADVANCE DIRECTIVE 10/13/2022 5:44 AM * Full Code (Latest Code Status on File) Date Activated Date Inactivated Comments 10/13/2022 3:08 PM 10/14/2022 8:20 PM Care Teams Telecommunication Equipment Repairer Relationship Specialty Start Date End Date Henry Patel MD [address] [place] [id number] PCP - General Internal Medicine 10/06/22
--- OUTSIDE RECORDS SUMMARY | 2025-04-07 15:10 | XMS_ITS | Clinical Summary ---
Author Organization Healthcare Address [address] [id number] Care Team Providers Care Order Worker Name Role Phone Henry Patel MD Primary Care Provider [phone] Family History Medical History Relation Name Comments Heart attack Father Prostate cancer Father Stroke Father Alzheimer's disease Mother Dementia Mother Relation Name Status Comments Father Mother Social History Tobacco Use Types Packs/Day Years Used Date Smoking Tobacco: Never Comments Unknown Sex and Gender Information Value Date Recorded Sex Assigned at Not on file Legal Sex Female 7:35 PM EDT Gender Identity Not on file Sexual Orientation Not on file Last Filed Vital Signs Vital Sign Reading Time Taken Comments Blood Pressure - - Pulse - - Temperature - - Respiratory Rate - - Oxygen Saturation - - Inhaled Oxygen Concentration - - Weight 87.5 kg (192 lb 15.9 oz) 01/01/2017 2:02 PM EDT Height 157.5 cm (5' 2 ) 01/01/2017 2:02 PM EDT Body Mass Index 35.3 01/01/2017 2:02 PM EDT Plan of Treatment Not on file Care Teams Order Worker Relationship Specialty Start Date End Date Henry Patel MD [address] [place] [address] [address] [place] [address] PCP - General 01/25/21
== END 2025-04-07 23:59 | disposition home or self-care (01) ==
LOC: RAD 15:08
PROVIDERS: PCP Internal Medicine; Visit Provider Internal Medicine Gastroenterology
DX: Z12.31 Encounter for screening mammogram for malignant neoplasm of breast (principal); R92.333 Mammographic heterogeneous density, bilateral breasts
CPT/HCPCS: 77063; 77067